=== PATIENT | male | born 1995 | race Hispanic/Latino ===

== ENCOUNTER 2018-12-08 05:29 | Emergency (ER) | payer OTHER ==
--- NOTE | 2018-12-08 05:39 | C.PDOC ---
History Of Present Illness 23 year old female with PMHx of crohn's disease and "intestinal blockage" presents to the ED c/o severe RLQ abdominal pain associated with nausea and vomiting that started 20-30 minutes [employer]. Patient is actively vomiting in the ED. Patient denies fever, chills, diarrhea, rash, back pain. . Pt has not been on any medications for about 2 months, due to insurance issued Time Seen by Provider: 12/08/18 05:39 History Per: Patient History/Exam Limitations: no limitations Onset/Duration Of Symptoms: Mins (20-30) Current Symptoms Are (Timing): Still Present Severity: Severe Recent travel outside of the [place]: No Additional History Per: Patient Past Medical History Reviewed: Historical Data, Nursing Documentation, Vital Signs - Medical History PMH: Crohn's Disease Surgical History: No Surg Hx Family History: States: Unknown Family Hx Review Of Systems Constitutional: Negative for: Fever, Chills Cardiovascular: Negative for: Chest Pain Respiratory: Negative for: Shortness of Breath Gastrointestinal: Positive for: Nausea, Vomiting, Abdominal Pain. Negative for: Diarrhea Genitourinary: Negative for: Dysuria, Hematuria Musculoskeletal: Negative for: Back Pain Skin: Negative for: Rash Neurological: Negative for: Weakness, Numbness, Headache Physical Exam - Physical Exam Appears: Non-toxic, In Acute Distress, Other (actively vomiting) Skin: Warm, Dry Head: Normacephalic Eye(s): bilateral: Normal Inspection Oral Mucosa: Moist Neck: Supple Chest: Symmetrical Cardiovascular: Rhythm Regular Respiratory: No Rales, No Rhonchi, No Wheezing Gastrointestinal/Abdominal: Soft, Tenderness (diffusely tender), No Guarding, No Rebound Back: No CVA Tenderness Extremity: Bilateral: Atraumatic, Normal Color And Temperature, Normal ROM Neurological/Psych: Oriented x3, Normal Speech, Normal Cognition Gait: Steady ED Course And Treatment - Laboratory Results Result Diagrams: 12/08/18 05:55 12/08/18 05:55 O2 Sat by Pulse Oximetry: 99 (ON RA) Pulse Ox Interpretation: Normal Progress Note: Plan: - Labs. - Morphine 2 mg IVP. - Protonix 40 mg IVP. - Zofran 4 mg IVP. - IV fluids. - Blood culture. - UA. spoke with dr derjee christian - [place] [phone] - ok with current course. might need steroids Disposition Counseled Patient/Family Regarding: Studies Performed, Diagnosis - Disposition Disposition Time: 05:39 Condition: GUARDED - Clinical Impression Clinical Impression: Abdominal pain - Scribe Statement The provider has reviewed the documentation as recorded by the Scribe Chencho Zambrano All medical record entries made by the Scribe were at my direction and personally dictated by me. I have reviewed the chart and agree that the record accurately reflects my personal performance of the history, physical exam, medical decision making, and the department course for this patient. I have also personally directed, reviewed, and agree with the discharge instructions and disposition. Physician Patient Turnover Patient Signed Over To: Julita Ward Handoff Comments: pending labs, ct scan and dispostion
[2018-12-08] MEDS ORDERED: Sodium Chloride 0.9% 1,000 ML IV ONE (05:47)
[2018-12-08] MEDS ORDERED: Sodium Chloride 0.9% 1,000 ML ONE (05:55)
[2018-12-08] MEDS ORDERED: Morphine 4 MG/ML VIAL ONE ×2 (05:55→06:33)
[2018-12-08 05:58] LABS: BASO % 0.3 % (0.0-2.0); EOS # 0.1 K/uL (0.0-0.7); EOS % 1.8 % (0.0-4.0); LYMPH # 3.4 K/uL (1.0-4.3); LYMPH % 54.7 % (20.0-40.0); MEAN CELL VOLUME 82.2 fL (80.0-94.0); MEAN CORPUSCULAR HEMOGLOBIN 29.1 pg (27.0-31.0); MEAN CORPUSCULAR HGB CONC 35.3 g/dL (33.0-37.0); MONO # 0.8 K/uL (0.0-0.8); MONO % 12.5 % (0.0-10.0); NEUT # 1.9 K/uL (1.8-7.0); NEUT % 30.7 % (50.0-75.0); NRBC % 0.2 % (0.0-2.0); RBC 5.87 Mil/uL (4.40-5.90); RED CELL DISTRIBUTION WIDTH 13.4 % (11.5-14.5); WHITE BLOOD COUNT 6.3 K/uL (4.8-10.8)
[2018-12-08 06:07] LABS: INR 1.5; PROTHROMBIN TIME 16.8 SECONDS (9.7-12.2)
[2018-12-08 06:15] LABS: ALB/GLOB RATIO 1.5 (1.0-2.1); ALBUMIN 4.8 g/dL (3.5-5.0); ALT/SGPT 21 U/L (21-72); AST/SGOT 22 U/L (17-59); BLOOD UREA NITROGEN 13 mg/dL (9-20); CALCIUM 9.7 mg/dl (8.6-10.4); GFR NON-AFRICAN AMERICAN > 60; LIPASE 140 U/L (23-300)
[2018-12-08] MEDS ORDERED: Morphine 4 MG/ML VIAL IV STA (06:23)
[2018-12-08] MEDS ORDERED: Iodixanol 320 MG/ML 200 ML BOTTLE IV ONE (07:38)
[2018-12-08 08:21] LABS: URINE BILIRUBIN NEGATIVE (NEGATIVE); URINE BLOOD 3+ (NEGATIVE); URINE CLARITY Hazy (Clear); URINE COLOR Yellow (YELLOW); URINE GLUCOSE (UA) NORMAL (Normal); URINE LEUKOCYTE ESTERASE NEG Leu/uL (Negative); URINE PROTEIN 1+ mg/dL (NEGATIVE); URINE UROBILINOGEN NORMAL mg/dL (0.2-1.0)
--- NOTE | 2018-12-08 09:38 | CT ---
Date of service: 12/08/2018 PROCEDURE: CT Abdomen and Pelvis with contrast HISTORY: Abdominal pain in a patient with history of Crohn's disease obstruction. COMPARISON: No prior study available for comparison.. TECHNIQUE: Contiguous helical/transaxial sections of abdomen pelvis performed in standard fashion following intravenous injection of approximately 100 cc Visipaque 320 contrast material. Additional 2D sagittal and coronal reformats generated. The Radiation dose: Total exam DLP = 354.0 mGy-cm. This CT exam was performed using one or more of the following dose reduction techniques: Automated exposure control, adjustment of the mA and/or kV according to patient size, and/or use of iterative reconstruction technique. FINDINGS: LOWER THORAX: There is a small hiatal hernia. Lung bases clear. Heart size normal. No significant pericardial effusion. LIVER: Liver exhibits normal size measuring approximately 16 cm in CC dimension. No obvious hepatic mass collection or calcification. No significant ductal dilatation. GALLBLADDER AND BILE DUCTS: Gallbladder is physiologically distended. No evidence of intraluminal gallbladder calculi.. PANCREAS: Unremarkable. No gross lesion or ductal dilatation. SPLEEN: Spleen is borderline/mildly enlarged measuring approximately 13.7 cm in greatest CC dimension. No obvious splenic masses or collections. No splenic calcifications. ADRENALS: No adrenal adrenal lesions.. KIDNEYS AND URETERS: Kidneys demonstrate relatively symmetric nephrograms. There is mild moderate right-sided hydronephrosis secondary to an obstructing calculus located in the right UVJ that measures approximately 2.4 cm. There is mild urothelial enhancement of the ureter to a lesser degree right renal pelvis which could be reactive however the possibility of an ascending UTI must considered as well. No evidence of left-sided nephrolithiasis or hydronephrosis. VASCULATURE: Unremarkable. No aortic aneurysm. No aortic atherosclerotic calcification or mural plaque present. BOWEL: Evaluation of the bowel is somewhat limited due to the lack of oral contrast material. Stomach is incompletely distended. Visualized loops of small bowel exhibit normal contour and caliber. No evidence of acute mechanical small bowel obstruction. Stool and air seen throughout the large bowel. No definitive mural wall thickening. APPENDIX: No evidence of acute appendicitis. PERITONEUM: Unremarkable. No free fluid. No free air. LYMPH NODES: There are several scattered small to medium-sized mesenteric lymph nodes predominant located in the right mid to lower quadrant of the abdomen possibly representing mesenteric adenitis as well.. BLADDER: The urinary bladder is incompletely distended which in part accounts for thick-walled appearance. Muscular hypertrophy may contribute. Possibility of a cystitis should be excluded with urinalysis follow-up. REPRODUCTIVE: Unremarkable. BONES: No acute fractures of the visualized lower thoracic or lumbar spine. Minor multilevel degenerative spondylosis OTHER FINDINGS: None. IMPRESSION: There is a 2.4 mm calculus within the right UVJ with mild to moderate right-sided hydronephrosis. There is also urothelial enhancement of the ureter and to a lesser degree right renal pelvis; rule out ascending UTI. Urinary bladder wall thickening in part due to incomplete distention and muscular hypertrophy however cystitis must be considered as well. Correlation with urinalysis recommended. Few mesenteric lymph nodes predominately located in the right mid lower quadrant of the abdomen suggesting mesenteric adenitis Borderline/mild splenomegaly.
[2018-12-08 09:53] VITALS: BP 109/66; PULSE 81; TEMP 98.3; O2SAT 98
[2018-12-08 10:03] VITALS: RESP 20
== END 2018-12-08 10:04 | disposition home or self-care (01) ==
LOC: C.ER 05:29
DX: R10.31 Right lower quadrant pain (principal)
CPT/HCPCS: 74177; 80053; 81001; 83690; 85025; 85610; 85730; 87040; 96361; 96374; 96375; 96376; 99285; C9113; J1885; J2270; J2405; J7030; Q9966